=== PATIENT | female | born 2000 | race Caucasian/White ===

== ENCOUNTER → 2021-03-27 | Outpatient (CLI) | payer OTHER ==
[~2021-03-27] MED LIST: CATHETER FLUSH 10 ML SYR IV PRN; HOLD METFORMIN - RECEIVED CONTRAST 20 ML VIAL IV SCH; IOHEXOL 350 MG/ML 100 ML (OMNIPAQUE 350) VIAL IV ONE; NS 100 ML (IVPB) BAG IV ONE
--- NOTE | 2021-03-27 11:57 | Diagnostic Imaging Report ---
PROCEDURE: CT head with and without contrast. TECHNIQUE: Multiple contiguous axial images were obtained through the brain before and after the administration of intravenous contrast. Auto Exposure Controls were utilized during the CT exam to meet ALARA standards for radiation dose reduction. INDICATION: 4 days history of confusion, no known trauma. FINDINGS: There is no intracranial hemorrhage, hydrocephalus, edema, mass, mass effect or abnormal enhancement following contrast. There are no abnormal extra-axial fluid collections. The midline structures are nondisplaced. There is normal enhancement of the major dural venous sinuses. There is no sulcal effacement. The ventricular system nondilated and nondisplaced. The basilar cisterns patent. No evidence for an elevation of the intracerebral pressures. The orbits, sinuses and calvarium appeared nonacute. IMPRESSION: Unremarkable pre and post contrasted CT head. Dictated by: Dictated on workstation # [id number]
== END ==
LOC: RAD 11:16
PROVIDERS: ATTEND Internal Medicine
DX: R51.9 Headache, unspecified (principal); R41.82 Altered mental status, unspecified; R41.0 Disorientation, unspecified
CPT/HCPCS: 70470